=== PATIENT | male | born 2000 | race Two or more races ===

== ENCOUNTER 2023-10-31 09:07 | Emergency (ER) | payer SELFPAY ==
[2023-10-31 09:18] VITALS: BMI 25.0
[2023-10-31] MEDS ORDERED: IBUPROFEN 600 MG TABLET (FP) PO ONE (10:02)
[2023-10-31] MEDS ORDERED: DEXAMETHASONE SOD PHOSPHATE 10 MG/1 ML VIAL ONE (10:03)
[2023-10-31] MEDS ORDERED: ACETAMINOPHEN 500 MG TABLET (FP) ONE (10:03)
[2023-10-31] MEDS ORDERED: AMOX TR/POT CLAV 875MG/125MG TABLETS (FP) ONE (10:03)
[2023-10-31] MEDS: ACETAMINOPHEN 500 MG TABLET (FP) PO ONE (10:08)
[2023-10-31] MEDS: DEXAMETHASONE SOD PHOSPHATE 10 MG/1 ML VIAL IM ONE (10:08)
[2023-10-31] MEDS: AMOX TR/POT CLAV 875MG/125MG TABLETS (FP) PO ONE (10:08)
[2023-10-31 11:08] LABS: THROAT:GRP A STREP DETECTED (NOTDETECTED)
[2023-10-31 11:19] VITALS: BP 121/64; PULSE 91; RESP 20; TEMP 98.1
== END 2023-10-31 11:21 | disposition home or self-care (01) ==
LOC: JERFT 09:07
PROC: 3E023GC Introduction of Other Therapeutic Substance into Muscle, Percutaneous Approach (ICD-10-PCS; principal; 2023-10-31)
DX: J03.90 Acute tonsillitis, unspecified (principal); Z20.822 Contact with and (suspected) exposure to COVID-19
CPT/HCPCS: 0241U-QW; 87651; 99284-25; J1100

== ENCOUNTER 2024-03-25 06:23 | Emergency (ER) | payer OTHER ==
[2024-03-25 06:38] VITALS: BMI 25.8
[2024-03-25] MEDS ORDERED: ACETAMINOPHEN INJECTION 100 ML ONE (08:16)
[2024-03-25] MEDS ORDERED: ONDANSETRON 4 MG/2 ML VIAL ONE (08:16)
[2024-03-25] MEDS: ACETAMINOPHEN 1000 MG/100 ML BAG IVPB ONE (08:32)
[2024-03-25] MEDS: ONDANSETRON 4 MG/2 ML VIAL IVPUSH ONE (08:32)
[2024-03-25] MEDS: SODIUM CHLORIDE 1,000 ML IV STA (08:32)
[2024-03-25 08:43] LABS: HEMATOCRIT 44.9 % (35.4-49); HEMOGLOBIN 15.4 GM/dL (11.7-16.9); MCH 29.1 pg (25.7-33.7); MCHC 34.2 g/dl (32.0-35.9); MEAN CELL VOLUME 85.1 fl (80-96); PLATELET COUNT 270 10^3/uL (134-434); RBC 5.27 M/mm3 (4.00-5.60); WHITE BLOOD COUNT 11.8 K/mm3 (4.0-10.0)
[2024-03-25 09:03] LABS: POTASSIUM 4.1 mmol/L (3.5-5.1)
[2024-03-25 09:04] LABS: ALBUMIN 4.6 g/dl (3.4-5.0); CALCIUM 9.2 mg/dL (8.5-10.1)
[2024-03-25 09:05] LABS: BLOOD UREA NITROGEN 13.5 mg/dL (7-18)
[2024-03-25 09:08] LABS: CREATININE 0.8 mg/dL (0.55-1.3)
[2024-03-25 09:09] LABS: BILIRUBIN,TOTAL 0.8 mg/dL (0.2-1); TOT PROT 8.1 g/dl (6.4-8.2)
[2024-03-25] MEDS: FAMOTIDINE 20 MG/50 ML IVPB 20 MG/50 ML MG IVPB ONE (09:36)
[2024-03-25] MEDS ORDERED: FAMOTIDINE 20 MG/50 ML IVPB 20 MG/50 ML MG IVPB ONE (09:37)
[2024-03-25 09:46] LABS: HIV INTERPRETATION NEGATIVE (NEGATIVE)
[2024-03-25] MEDS ORDERED: MORPHINE SULFATE 2 MG/ML SYRINGE ONE (11:00)
[2024-03-25] MEDS: morphine SULFATE 4 MG/ML VIAL IVPUSH ONE (11:10)
[2024-03-25 11:32] VITALS: BP 138/90; PULSE 60; RESP 18; TEMP 98.4
== END 2024-03-25 13:15 | disposition home or self-care (01) ==
LOC: JER 06:23
PROC: 3E033GC Introduction of Other Therapeutic Substance into Peripheral Vein, Percutaneous Approach (ICD-10-PCS; principal; 2024-03-25)
PROC: 3E033NZ Introduction of Analgesics, Hypnotics, Sedatives into Peripheral Vein, Percutaneous Approach (ICD-10-PCS; 2024-03-25)
PROC: 3E033NZ Introduction of Analgesics, Hypnotics, Sedatives into Peripheral Vein, Percutaneous Approach (ICD-10-PCS; 2024-03-25)
PROC: 3E033GC Introduction of Other Therapeutic Substance into Peripheral Vein, Percutaneous Approach (ICD-10-PCS; 2024-03-25)
DX: R10.11 Right upper quadrant pain (principal); R11.0 Nausea
CPT/HCPCS: 36415; 74177-TC; 76705-TC; 80053; 83690; 85027; 86803; 87389; 93005; 93010; 99285-25; J0131; Q9967